=== PATIENT | male | born 1950 | race Caucasian/White ===

== ENCOUNTER 2025-04-03 05:55 | Day surgery (SDC) | payer MEDICARE ==
[2025-04-03] MEDS: Lactated Ringers 1,000 ML IV SCH (06:12)
[2025-04-03] MEDS ORDERED: PHENYLEPHRINE HCL ONE (06:58)
[2025-04-03] MEDS ORDERED: propofoL IV ONE (06:58)
[2025-04-03 08:17] VITALS: BP 106/81; PULSE 89; RESP 17; TEMP 96.9; O2SAT 95
--- NOTE | 2025-04-04 08:23 | OP ---
SURGERY DATE/TIME: 04/03/2025 [id number] PREOPERATIVE DIAGNOSES: 1) Dysphagia. 2) Screening colonoscopy. POSTOPERATIVE DIAGNOSES: 1) Moderate gastritis. 2) Normal colon. PROCEDURES: 1) Esophagogastroduodenoscopy. 2) Colonoscopy. SURGEON: Pj Brennan MD. ANESTHESIA: MAC by Antonio Ng CRNA ESTIMATED BLOOD LOSS: Minimal. SPECIMENS: Two cold forceps biopsies from the gastric antrum. DESCRIPTION OF PROCEDURE AND FINDINGS: After informed written consent was obtained, the patient was taken to the endoscopy suite. He was placed in left lateral decubitus position and a bite block was inserted. Anesthesia was carefully titrated to desired level of consciousness. The endoscope was inserted in the posterior oropharynx. Under direct visualization, the esophagus was easily traversed. There were no obvious strictures or mucosal lesions in the esophagus. Upon entering in the stomach, there was normal rugated gastric mucosa. There were moderate gastritis changes in the gastric antrum with no focal serration or bleeding. Pylorus was traversed and the duodenum had a normal mucosal appearance with some mild inflammatory changes in the proximal portion. Two cold forceps biopsies were taken from the gastric antrum and sent for H. pylori testing. The remainder of the exam was unremarkable upon withdrawal of the scope. The scope was removed and the scopes were switched. Digital rectal exam showed normal sphincter tone and no internal lesions. The colonoscope was inserted into the rectum and sequentially the entire colonic mucosa was traversed. Level of the cecum was reached and verified with direct visualization of the ileocecal valve. Upon withdrawal, careful mucosal inspection revealed no gross mucosal abnormalities. He had few scattered diverticula, but very minimal. Prior to withdrawal, retroflexion showed no internal lesions. The scope was removed, and the patient was transferred to the recovery room in good condition.
== END 2025-04-03 08:26 | disposition home or self-care (01) ==
LOC: SDC 05:55
PROVIDERS: ATTEND Family Medicine
DX: Z12.11 Encounter for screening for malignant neoplasm of colon (principal); R13.10 Dysphagia, unspecified; K29.70 Gastritis, unspecified, without bleeding